=== PATIENT | female | born 1935 | race Caucasian/White ===

== ENCOUNTER → 2017-03-23 | Outpatient (CLI) | payer MEDICARE, BC ==
[~2017-03-23] MED LIST: ACTOS 15MG TAB15 MG PO; ALEVE 220MG220 MG PO; ASPIRIN 81M81 MG/TA2 PO; CELEXA 20MG20 MG/TAB PO; COZAAR 50MG50 MG/TAB PO; LASIX 20MG TABL20 MG PO; LIPITOR 10MG10 MG PO; NEOMYCIN OP; PEPCID AC 10MG10 MG PO; PREDNISONE20 MG PO; PRINIVIL10 MG PO; REFRESH 1 ML1 ML OP; TYLENOL 325MG325 MG PO; VITAMIN D1000 IU PO; ZATADOR OP
== END ==
LOC: MC.RAD 10:00
DX: Z12.31 Encounter for screening mammogram for malignant neoplasm of breast (principal)

== ENCOUNTER → 2019-10-25 | Outpatient (CLI) | payer MEDICARE, BC | LOC: MC.RAD 08:25 | DX: Z12.31 Encounter for screening mammogram for malignant neoplasm of breast (principal); Z95.0 Presence of cardiac pacemaker ==

== ENCOUNTER 2020-04-13 13:09 | Emergency (ER) | payer MEDICARE, BC ==
[~2020-04-13] VITALS: Ht 165.1 cm; Wt 91.8 kg
[2020-04-13 13:12] VITALS: BP 115/71; TEMP 97.6
[2020-04-13] MEDS ORDERED: NORCO 325 MG-51 TAB PO (13:50)
[2020-04-13 14:18] VITALS: PULSE 64
== END 2020-04-13 14:18 | disposition home or self-care (01) ==
LOC: COL.ER 13:09
DX: S90.31XA Contusion of right foot, initial encounter (principal); E11.9 Type 2 diabetes mellitus without complications; Z79.82 Long term (current) use of aspirin; Z79.84 Long term (current) use of oral hypoglycemic drugs; W22.8XXA Striking against or struck by other objects, initial encounter

== ENCOUNTER 2024-06-15 12:11 | Emergency (ER) | payer MEDICARE, BC ==
[~2024-06-15] VITALS: Ht 165.1 cm; Wt 82.7 kg
[~2024-06-15 12:11] MED LIST changes: +NORCO 325 MG-51 TAB PO
[2024-06-15 12:17] VITALS: TEMP 98.2
[2024-06-15 14:17] VITALS: BP 95/50; PULSE 62
== END 2024-06-15 14:17 | disposition home or self-care (01) ==
LOC: COL.ER 12:11
DX: S09.90XA Unspecified injury of head, initial encounter (principal); S00.83XA Contusion of other part of head, initial encounter; S00.12XA Contusion of left eyelid and periocular area, initial encounter; S00.11XA Contusion of right eyelid and periocular area, initial encounter; W01.0XXA Fall on same level from slipping, tripping and stumbling without subsequent striking against object, initial encounter